=== PATIENT | male | born 1985 | race American Indian/Alaskan Native ===

== ENCOUNTER 2016-06-03 14:40 | Emergency (ER) | payer SELFPAY ==
[2016-06-03 15:51] VITALS: BP 116/81
[2016-06-03] MEDS ORDERED: ZITHROMAX PO ONE (16:13)
[2016-06-03] MEDS ORDERED: XYLOCAINE 1% MPF 5 mL INFILTRATI ONE (16:13)
[2016-06-03] MEDS ORDERED: ROCEPHIN IM ONE (16:13)
--- NOTE | 2016-06-03 16:26 | Emergency Department Report ---
ED Male HPI - General Chief complaint: Urogenital-Male Stated complaint: POSS STD Time Seen by Provider: 06/03/16 15:57 Source: patient Mode of arrival: Ambulatory Limitations: No Limitations - History of Present Illness Initial comments: PT states he woke up this morning with testicular pain and swelling and penile discharge. PT states he has no hx of STDs. PT states he is not sexually active , states "I just get head" MD Complaint: testicle pain, testicle swelling, penile discharge, dysuria -: Sudden (woke up with symptoms ), hour(s) (5 hours ) Location: penis, right testicle, left testicle Radiation: other (abd ) Severity scale (0 -10): 10 Quality: sharp Consistency: constant Worsens with: urination, palpation discharge, swelling, dysuria. denies: rash, blood in urine, fever, nausea/ vomiting - Related Data Sexually active: Yes Allergies Allergy/AdvReac Type Severity Reaction Status Date / Time aspirin Allergy Unknown Verified 06/03/16 15:47 ED Review of Systems ROS: Stated complaint: POSS STD Other details as noted in HPI Comment: All other systems reviewed and negative Constitutional: denies: chills, fever Gastrointestinal: abdominal pain. denies: nausea, vomiting Genitourinary: dysuria, discharge, testicular pain Skin: denies: rash, lesions ED Past Medical Hx - Past Medical History Hx Seizures: Yes Additional medical history: Thyroid - Surgical History Past Surgical History?: No - Social History Smoking Status: Never Smoker Substance Use Type: Alcohol ED Physical Exam - General Limitations: No Limitations General appearance: alert, in no apparent distress - Head Head exam: Present: atraumatic, normocephalic, normal inspection - Eye Eye exam: Present: normal appearance, PERRL. Absent: conjunctival injection - ENT ENT exam: Present: normal exam, normal orophraynx, mucous membranes moist, normal external ear exam - Neck Neck exam: Present: normal inspection, full ROM. Absent: tenderness - Respiratory Respiratory exam: Present: normal lung sounds bilaterally. Absent: respiratory distress, wheezes - Cardiovascular Cardiovascular Exam: Present: normal rhythm, tachycardia (mildly ) - GI/Abdominal GI/Abdominal exam: Present: soft, normal bowel sounds. Absent: distended, tenderness, guarding, rebound - exam: Present: normal inspection, testicular tenderness, other (not circumsized). 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 Absent: erythema, swelling, lesions, bleeding - Expanded Exam Expanded exam: Testicular Tenderness: Left, Right, Epididymal Tenderness: Left, Right - Extremities Exam Extremities exam: Present: normal inspection, full ROM - Back Exam Back exam: Present: full ROM. Absent: tenderness, CVA tenderness (R), CVA tenderness (L), muscle spasm, paraspinal tenderness, vertebral tenderness - Neurological Exam Neurological exam: Present: alert, oriented X3, normal gait - Psychiatric Psychiatric exam: Present: normal affect, normal mood - Skin Skin exam: Present: warm, dry, intact, normal color ED Course Vital Signs 06/03/16 15:47 Temperature 98.5 F Pulse Rate 103 H Respiratory 18 Rate Blood Pressure 116/81 O2 Sat by Pulse 96 Oximetry - Reevaluation(s) Reevaluation #1: 06/03/16 16:29 PT aware of plan. Will treat pt empirically for CT/GC. PT aware that STDs can be transmitted via oral sex. PT given education on a barrier method. Reevaluation #2: 06/03/16 18:23 PT states he can not wait for the results of his US. PT aware if he leaves prior to US report, there could be a condition that does not get diagnosed. PT is alert and oriented x 4 and of sound judgment. PT does not want to wait for report. PT advised to abstain from sex x 7 days and to follow up with the health dept for full panel std testing. PT verbalizes understanding. - Pulse Oximetry Interpretation Digit-Finger Initial Pulse Oximetry Readin Actions Taken: none ED Medical Decision Making - Lab Data Lab Results 06/03/16 Range/Units 16:05 Urine Color Yellow (Yellow) Urine Turbidity Clear (Clear) Urine pH 8.0 H (5.0-7.0) Ur Specific [place] 1.019 (1.003-1.030) Urine Protein 30 mg/dl (Negative) mg/dL Urine Glucose (UA) Neg (Negative) mg/dL Urine Ketones Tr (Negative) mg/dL Urine Blood Neg (Negative) Urine Nitrite Neg (Negative) Urine Bilirubin Neg (Negative) Urine Urobilinogen 4.0 (<2.0) mg/dL Ur Leukocyte Esterase Sm (Negative) Urine WBC (Auto) 32.0 H (0.0-6.0) /HPF Urine RBC (Auto) 4.0 (0.0-6.0) /HPF U Epithel Cells (Auto) < 1.0 (0-13.0) /HPF Urine Mucus Few /HPF - Radiology Data Radiology results: pending - Differential Diagnosis std, uti, epidimitis, hydrocele. Critical care attestation.: If time is entered above; I have spent that time in minutes in the direct care of this critically ill patient, excluding procedure time. ED Disposition Disposition: LEFT AGAINST MEDICAL ADVICE Is pt being admited?: No Does the pt Need Aspirin: No Condition: Undetermined Referrals: PRIMARY CARE, [Primary Care Provider] - 3-5 Days Forms: AMA Form, Work/School Release Form(ED) Time of Disposition: 18:26
[2016-06-03 17:02] LABS: Bilirubin,Urine NEG (Negative); Blood,Urine NEG (Negative); Ketones,Urine TR mg/dL (Negative); Leukocyte Esterase,Urine SM (Negative); Mucus,Urine FEW /HPF; Nitrite,Urine NEG (Negative)
--- NOTE | 2016-06-03 18:21 | Ultrasound Report ---
FINAL REPORT EXAM: US SCROTUM HISTORY: pain and swelling TECHNIQUE: Multiple grayscale sonographic images were obtained of the scrotum and its contents. Doppler interrogation of the testicles was performed. PRIORS: None. FINDINGS: Right testicle measures approximately 3.7 x 2 x 2.4 centimeters. It has normal echotexture and blood flow. Epididymal head measures 10 x 8 millimeters. Left testicle measures approximately 3.7 x 2.3 x 2.5 centimeters. It has normal echotexture and blood flow. Epididymal head measures approximately 13 x 7 millimeters. IMPRESSION: 1. No abnormal mass is identified. 2. Blood flow is detected in the testicles, bilaterally.
== END 2016-06-03 18:30 | disposition left against medical advice (07) ==
LOC: ED 14:40
DX: N50.811 Right testicular pain (principal); N50.812 Left testicular pain; R36.9 Urethral discharge, unspecified; R30.0 Dysuria; R56.9 Unspecified convulsions; Z88.6 Allergy status to analgesic agent
CPT/HCPCS: 81001; 87591; 93975; 96372; 99283; J0696; 76870